=== PATIENT | female | born 1955 | race Caucasian/White ===

== ENCOUNTER 2023-07-14 04:35 | Day surgery (SDC) | payer OTHER ==
[2023-07-12 14:50] VITALS: BMI 29.5
[2023-07-14 08:16] VITALS: TEMP 98.6
[2023-07-14] MEDS ORDERED: LIDOCAINE HCL 2% JELLY 10 ML CARTRIDGE TP ONE (08:45)
[2023-07-14 10:07] VITALS: RESP 17
[2023-07-14 10:09] VITALS: BP 117/65; PULSE 66
== END 2023-07-14 09:45 | disposition home or self-care (01) ==
LOC: JASU-ENDO 04:35
PROVIDERS: ATTEND Internal Medicine Gastroenterology
PROC: 06LY8CC Occlusion of Hemorrhoidal Plexus with Extraluminal Device, Via Natural or Artificial Opening Endoscopic (ICD-10-PCS; principal; 2023-07-14 08:30)
DX: K64.3 Fourth degree hemorrhoids (principal)

== ENCOUNTER 2023-07-15 19:02 | Observation (INO) | payer OTHER ==
[2023-07-15 20:04] VITALS: BMI 29.8
[2023-07-15 20:46] LABS: BASO % 0.5 % (0-2.0); EOS % 1.1 % (0-4.5); HEMATOCRIT 38.1 % (32.4-45.2); HEMOGLOBIN 12.4 GM/dL (10.7-15.3); LYMPH % 26.8 % (8-40); MCH 25.5 pg (25.7-33.7); MCHC 32.5 g/dl (32.0-36.0); MEAN CELL VOLUME 78.3 fl (80-96); MEAN PLT VOLUME 8.9 fl (7.5-11.1); MONO % 6.5 % (3.8-10.2); NEUT % 65.1 % (42.8-82.8); PLATELET COUNT 279 10^3/uL (134-434); RBC 4.86 M/mm3 (3.60-5.2); RDW 14.8 % (11.6-15.6)
[2023-07-15 20:52] LABS: CHLORIDE 104 mmol/L (98-107); SODIUM 133 mmol/L (136-145)
[2023-07-15 20:54] LABS: ALBUMIN 3.7 g/dl (3.4-5.0); CALCIUM 9.2 mg/dL (8.5-10.1); CO2 25 mmol/L (21-32); LIPASE 73 U/L (73-393); MAGNESIUM 2.3 mg/dL (1.8-2.4)
[2023-07-15 20:55] LABS: GLUCOSE,RANDOM 106 mg/dL (74-106)
[2023-07-15 20:57] LABS: CREATININE 0.7 mg/dL (0.55-1.3); PHOSPHOROUS 3.5 mg/dL (2.5-4.9); SGOT/AST 56 U/L (15-37); SGPT/ALT 39 U/L (13-61)
[2023-07-15 20:59] LABS: BILIRUBIN,TOTAL 0.2 mg/dL (0.2-1); TOT PROT 7.8 g/dl (6.4-8.2)
[2023-07-15 21:00] LABS: ALK PHOS 95 U/L (45-117)
[2023-07-15 21:23] LABS: ANION GAP 5 mmol/L (4-13); POTASSIUM 8.3 mmol/L (3.5-5.1)
[2023-07-15] MEDS ORDERED: SODIUM CHLORIDE 0.9% 500 ML INFUS.BAG IV ONE ×2 (21:28→21:30)
[2023-07-15] MEDS ORDERED: ASPIRIN 81 MG CHEWABLE TABLETS PO ONE (21:39)
[2023-07-15 21:42] LABS: INR 1.25 (0.83-1.09); PROTHROMBIN TIME (PATIENT) 14.5 SEC (9.7-13.0)
[2023-07-15] MEDS ORDERED: ASPIRIN 81 MG CHEWABLE TABLETS ONE (21:43)
[2023-07-15 22:51] LABS: CREATININE 0.7 mg/dL (0.55-1.3)
[2023-07-16] MEDS ORDERED: levETIRAcetam 500 MG/5 ML INJECTION VIAL IVPB ONE (03:11)
[2023-07-16] MEDS: ASPIRIN 81 MG CHEWABLE TABLETS PO SCH ×2 (08:03→11:12)
[2023-07-16] MEDS: CHLORTHALIDONE 25 MG TABLET PO SCH ×2 (08:03→11:12)
[2023-07-16] MEDS: amLODIPine BESYLATE 10 MG TABLET (FP) PO SCH ×2 (08:04→11:12)
[2023-07-16] MEDS: LISINOPRIL 10 MG TABLET PO SCH ×2 (08:04→11:12)
[2023-07-16 08:05] VITALS: RESP 18
[2023-07-16 08:45] LABS: BASO % 0.5 % (0-2.0); EOS % 0.9 % (0-4.5); HEMATOCRIT 37.4 % (32.4-45.2); HEMOGLOBIN 12.1 GM/dL (10.7-15.3); LYMPH % 33.6 % (8-40); MCH 25.6 pg (25.7-33.7); MCHC 32.4 g/dl (32.0-36.0); MEAN PLT VOLUME 8.4 fl (7.5-11.1); MONO % 8.4 % (3.8-10.2); NEUT % 56.6 % (42.8-82.8); PLATELET COUNT 246 10^3/uL (134-434); RBC 4.73 M/mm3 (3.60-5.2); RDW 14.6 % (11.6-15.6); WHITE BLOOD COUNT 6.6 K/mm3 (4.0-10.0)
[2023-07-16 09:06] LABS: POTASSIUM 4.6 mmol/L (3.5-5.1)
[2023-07-16 09:07] LABS: CALCIUM 9.6 mg/dL (8.5-10.1)
[2023-07-16 09:08] LABS: BLOOD UREA NITROGEN 12.6 mg/dL (7-18)
[2023-07-16 09:11] LABS: CREATININE 0.7 mg/dL (0.55-1.3)
[2023-07-16 11:33] LABS: N-TERMINAL BNP 200.2 pg/ml (5-125)
[2023-07-16 12:23] VITALS: BP 117/70; PULSE 54; TEMP 98
[2023-07-16] MEDS ORDERED: ATORVASTATIN CA 40 MG TABLET (FP) PO SCH (22:00)
== END 2023-07-16 12:24 | disposition home or self-care (01) ==
LOC: JER 19:02 → JERBED 22:23
PROVIDERS: ADMIT Family Medicine; ATTEND Family Medicine
PROC: 3E0337Z Introduction of Electrolytic and Water Balance Substance into Peripheral Vein, Percutaneous Approach (ICD-10-PCS; principal; 2023-07-15)
DX: R00.2 Palpitations (principal); R94.5 Abnormal results of liver function studies; R79.89 Other specified abnormal findings of blood chemistry; E78.1 Pure hyperglyceridemia; I10 Essential (primary) hypertension; E04.1 Nontoxic single thyroid nodule; L98.9 Disorder of the skin and subcutaneous tissue, unspecified; R10.9 Unspecified abdominal pain; E66.9 Obesity, unspecified
CPT/HCPCS: 0241U-QW; 36415; 71045-TC-FY; 71275-TC; 74177-TC; 80048; 80053; 80061; 83690; 83735; 83880; 84100; 84439; 84443; 84484; 85025; 85610; 85730; 93005; 93010; 96360; 99285-25; G0378; Q9967

== ENCOUNTER 2023-07-21 18:59 | Observation (INO) | payer OTHER ==
[2023-07-21] MEDS ORDERED: ACETAMINOPHEN 1000 MG/100 ML BAG IVPB ONE (19:47)
[2023-07-21] MEDS ORDERED: MAG HYDROX/AL HYDROX/SIMETH 30 ML UNIT-DOSE CUP PO ONE (19:47)
[2023-07-21] MEDS ORDERED: FAMOTIDINE 20 MG/50 ML IVPB 20 MG/50 ML MG IVPB ONE ×2 (19:47→19:57)
[2023-07-21] MEDS ORDERED: MAG HYDROX/AL HYDROX/SIMETH 30 ML UNIT-DOSE CUP ONE (19:56)
[2023-07-21] MEDS ORDERED: ACETAMINOPHEN INJECTION 100 ML IVPB ONE (19:56)
[2023-07-21 20:22] LABS: BASO % 0.7 % (0-2.0); EOS % 1.2 % (0-4.5); HEMATOCRIT 38.6 % (32.4-45.2); HEMOGLOBIN 12.5 GM/dL (10.7-15.3); MCH 25.4 pg (25.7-33.7); MCHC 32.5 g/dl (32.0-36.0); MEAN PLT VOLUME 8.5 fl (7.5-11.1); MONO % 9.9 % (3.8-10.2); NEUT % 59.2 % (42.8-82.8); PLATELET COUNT 277 10^3/uL (134-434); RBC 4.95 M/mm3 (3.60-5.2); RDW 14.2 % (11.6-15.6); WHITE BLOOD COUNT 7.3 K/mm3 (4.0-10.0)
[2023-07-21 20:29] LABS: INR 1.26 (0.83-1.09); PROTHROMBIN TIME (PATIENT) 14.6 SEC (9.7-13.0)
[2023-07-21 20:31] LABS: ACTIVATED PTT 35.9 SECONDS (25.2-36.5)
[2023-07-21 20:47] LABS: CHLORIDE 93 mmol/L (98-107)
[2023-07-21 20:49] LABS: ALBUMIN 3.7 g/dl (3.4-5.0); CALCIUM 9.2 mg/dL (8.5-10.1); CO2 24 mmol/L (21-32); GLUCOSE,RANDOM 94 mg/dL (74-106)
[2023-07-21 20:52] LABS: CREATININE 0.8 mg/dL (0.55-1.3); SGOT/AST 97 U/L (15-37)
[2023-07-21 20:54] LABS: BILIRUBIN,TOTAL 0.5 mg/dL (0.2-1); TOT PROT 8.5 g/dl (6.4-8.2)
[2023-07-21 20:55] LABS: ALK PHOS 108 U/L (45-117)
[2023-07-21 21:14] LABS: ANION GAP 1 mmol/L (4-13); POTASSIUM > 10.0 mmol/L (3.5-5.1); SGPT/ALT 48 U/L (13-61); SODIUM 119 mmol/L (136-145)
[2023-07-21 22:33] LABS: POTASSIUM 4.4 mmol/L (3.5-5.1)
[2023-07-21 22:36] LABS: BLOOD UREA NITROGEN 11.2 mg/dL (7-18); CALCIUM 9.6 mg/dL (8.5-10.1)
[2023-07-21 22:40] LABS: CREATININE 0.7 mg/dL (0.55-1.3)
[2023-07-21] MEDS ORDERED: SODIUM CHLORIDE 500 ML IV STA (22:45)
[2023-07-21] MEDS ORDERED: ASPIRIN 81 MG CHEWABLE TABLETS PO ONE (22:59)
[2023-07-21] MEDS ORDERED: ASPIRIN 81 MG CHEWABLE TABLETS ONE (23:02)
[2023-07-22] MEDS: ACETAMINOPHEN 325 MG TABLET (FP) PO PRN (03:36)
[2023-07-22 04:16] LABS: EPI CELLS 1 /uL (0-25.1); HYALINE CASTS 0 /uL (0-3.1); PH,URINE 7.5 (5.0-8.0); URINE APPEARANCE CLEAR; URINE BACTERIA 1 /uL (0-1359); URINE BILIRUBIN NEGATIVE (NEGATIVE); URINE COLOR YELLOW; URINE GLUCOSE (UA) NEGATIVE (NEGATIVE); URINE KETONE NEGATIVE (NEGATIVE); URINE LEUK ESTERASE NEGATIVE (NEGATIVE); URINE NITRITE NEGATIVE (NEGATIVE); URINE PROTEIN NEGATIVE (NEGATIVE); URINE RBC 65 /uL (0-23.9); URINE UROBILINOGEN 0.2 mg/dL (0.2-1.0); URINE WBC 1 /uL (0-25.8)
[2023-07-22 08:08] LABS: BASO % 0.6 % (0-2.0); EOS % 1.1 % (0-4.5); HEMATOCRIT 36.7 % (32.4-45.2); LYMPH % 32.9 % (8-40); MCH 25.3 pg (25.7-33.7); MCHC 32.7 g/dl (32.0-36.0); MEAN CELL VOLUME 77.4 fl (80-96); MEAN PLT VOLUME 8.3 fl (7.5-11.1); NEUT % 55.4 % (42.8-82.8); PLATELET COUNT 260 10^3/uL (134-434); RBC 4.74 M/mm3 (3.60-5.2); RDW 14.1 % (11.6-15.6)
[2023-07-22 08:36] LABS: POTASSIUM 4.3 mmol/L (3.5-5.1)
[2023-07-22 08:42] LABS: CALCIUM 9.2 mg/dL (8.5-10.1)
[2023-07-22 08:43] LABS: BLOOD UREA NITROGEN 9.5 mg/dL (7-18)
[2023-07-22 08:45] LABS: CREATININE 0.7 mg/dL (0.55-1.3)
[2023-07-22] MEDS ORDERED: POLYETHYLENE GLYCOL (HEALTHYLAX) 3350 17 GM PACKET ONE (09:03)
[2023-07-22] MEDS ORDERED: ASPIRIN 81 MG CHEWABLE TABLETS ONE (09:03)
[2023-07-22] MEDS ORDERED: LISINOPRIL 10 MG TABLET ONE (09:03)
[2023-07-22] MEDS ORDERED: amLODIPine BESYLATE 10 MG TABLET (FP) ONE (09:03)
[2023-07-22] MEDS: ASPIRIN 81 MG CHEWABLE TABLETS PO SCH (09:51)
[2023-07-22] MEDS: LISINOPRIL 10 MG TABLET PO SCH (09:51)
[2023-07-22] MEDS: amLODIPine BESYLATE 10 MG TABLET (FP) PO SCH (09:51)
[2023-07-22] MEDS ORDERED: POLYETHYLENE GLYCOL (HEALTHYLAX) 3350 17 GM PACKET PO SCH (10:00)
[2023-07-22] MEDS ORDERED: LIDOCAINE HCL 2% JELLY (30 ML/TUBE) TP PRN (11:07)
[2023-07-22] MEDS ORDERED: LIDOCAINE HCL 2% JELLY (5 ML/TUBE) TP PRN (11:10)
[2023-07-22] MEDS: SODIUM CHLORIDE 1,000 ML IV SCH (17:19)
[2023-07-22] MEDS: POLYETHYLENE GLYCOL (HEALTHYLAX) 3350 17 GM PACKET PO SCH (21:41)
[2023-07-22] MEDS: ATORVASTATIN CA 40 MG TABLET (FP) PO SCH (21:41)
[2023-07-23] MEDS: ACETAMINOPHEN 325 MG TABLET (FP) PO PRN (05:26)
[2023-07-23] MEDS: SODIUM CHLORIDE 1,000 ML IV SCH (05:27)
[2023-07-23 07:45] LABS: CHOLESTEROL 182 mg/dL (50-200)
[2023-07-23 07:46] LABS: LDL CHOLESTEROL (ONLY SJRH) 126 mg/dL (5-100)
[2023-07-23 07:48] LABS: HDL CHOLESTEROL 40 mg/dL (40-60)
[2023-07-23 07:50] LABS: ALBUMIN 3.4 g/dl (3.4-5.0)
[2023-07-23 07:53] LABS: CALCIUM 9.1 mg/dL (8.5-10.1)
[2023-07-23 07:54] LABS: BLOOD UREA NITROGEN 8.9 mg/dL (7-18)
[2023-07-23 07:55] LABS: CREATININE 0.7 mg/dL (0.55-1.3)
[2023-07-23 07:57] LABS: BILIRUBIN,TOTAL 0.4 mg/dL (0.2-1); TOT PROT 6.7 g/dl (6.4-8.2)
[2023-07-23] MEDS: ASPIRIN 81 MG CHEWABLE TABLETS PO SCH (10:20)
[2023-07-23] MEDS: POLYETHYLENE GLYCOL (HEALTHYLAX) 3350 17 GM PACKET PO SCH ×2 (10:20→22:16)
[2023-07-23] MEDS: LISINOPRIL 10 MG TABLET PO SCH (10:20)
[2023-07-23] MEDS: amLODIPine BESYLATE 10 MG TABLET (FP) PO SCH (10:20)
[2023-07-23] MEDS: ATORVASTATIN CA 40 MG TABLET (FP) PO SCH (22:16)
[2023-07-23 23:59] VITALS: BMI 30.2
[2023-07-24] MEDS: ACETAMINOPHEN 325 MG TABLET (FP) PO PRN (02:05)
[2023-07-24 07:22] LABS: POTASSIUM 4.1 mmol/L (3.5-5.1)
[2023-07-24 07:27] LABS: ALBUMIN 3.3 g/dl (3.4-5.0); CALCIUM 9.4 mg/dL (8.5-10.1)
[2023-07-24 07:31] LABS: CREATININE 0.7 mg/dL (0.55-1.3)
[2023-07-24 07:32] LABS: TOT PROT 6.5 g/dl (6.4-8.2)
[2023-07-24 07:38] LABS: BILIRUBIN,TOTAL 0.5 mg/dL (0.2-1)
[2023-07-24] MEDS: SODIUM CHLORIDE 1,000 ML IV SCH ×2 (07:40→15:59)
[2023-07-24 08:56] VITALS: RESP 18
[2023-07-24] MEDS: ASPIRIN 81 MG CHEWABLE TABLETS PO SCH (09:08)
[2023-07-24] MEDS: LISINOPRIL 10 MG TABLET PO SCH (09:08)
[2023-07-24] MEDS: amLODIPine BESYLATE 10 MG TABLET (FP) PO SCH (09:08)
[2023-07-24] MEDS: POLYETHYLENE GLYCOL (HEALTHYLAX) 3350 17 GM PACKET PO SCH (09:08)
[2023-07-24 18:11] VITALS: BP 104/50; PULSE 67; TEMP 98.2
== END 2023-07-24 20:35 | disposition home or self-care (01) ==
LOC: JER 18:59 → JERBED 22:59 → J4W 07-22 12:58
PROVIDERS: ADMIT Internal Medicine; ATTEND Family Medicine
PROC: 3E033NZ Introduction of Analgesics, Hypnotics, Sedatives into Peripheral Vein, Percutaneous Approach (ICD-10-PCS; principal; 2023-07-21)
PROC: 3E0337Z Introduction of Electrolytic and Water Balance Substance into Peripheral Vein, Percutaneous Approach (ICD-10-PCS; 2023-07-21)
DX: E87.1 Hypo-osmolality and hyponatremia (principal); R00.2 Palpitations; I10 Essential (primary) hypertension; R10.10 Upper abdominal pain, unspecified; R79.89 Other specified abnormal findings of blood chemistry
CPT/HCPCS: 36415; 74176-TC; 80048; 80053; 80061; 81003; 82272; 82550; 83036; 84484; 85025; 85610; 85730; 87086; 93005; 93010; 96361; 96365; 96375; 99285-25; G0378

== ENCOUNTER 2024-05-18 19:04 | Observation (INO) | payer OTHER ==
[2024-05-18] MEDS: ACETAMINOPHEN 500 MG TABLET (FP) PO ONE (21:00)
[2024-05-18] MEDS ORDERED: ACETAMINOPHEN 325 MG TABLET (FP) ONE (21:17)
[2024-05-18 22:28] LABS: BASO % 0.6 % (0-2.0); EOS % 0.7 % (0-4.5); HEMATOCRIT 37.8 % (32.4-45.2); HEMOGLOBIN 12.3 GM/dL (10.7-15.3); MCH 25.5 pg (25.7-33.7); MCHC 32.6 g/dl (32.0-36.0); MEAN CELL VOLUME 78.2 fl (80-96); MEAN PLT VOLUME 8.2 fl (7.5-11.1); MONO % 7.6 % (3.8-10.2); NEUT % 67.1 % (42.8-82.8); PLATELET COUNT 245 10^3/uL (134-434); RBC 4.84 M/mm3 (3.60-5.2); RDW 14.4 % (11.6-15.6); WHITE BLOOD COUNT 6.1 K/mm3 (4.0-10.0)
[2024-05-18 22:35] LABS: INR 1.19 (0.83-1.09); PROTHROMBIN TIME (PATIENT) 13.4 SEC (9.7-13.0)
[2024-05-18 22:38] LABS: ACTIVATED PTT 37.8 SECONDS (25.2-36.5)
[2024-05-18 23:12] LABS: CALCIUM 9.8 mg/dL (8.5-10.1)
[2024-05-18 23:13] LABS: ALBUMIN 3.8 g/dl (3.4-5.0); BLOOD UREA NITROGEN 10.8 mg/dL (7-18); MAGNESIUM 1.9 mg/dL (1.8-2.4)
[2024-05-18 23:16] LABS: CREATININE 0.6 mg/dL (0.55-1.3)
[2024-05-18 23:18] LABS: BILIRUBIN,TOTAL 0.2 mg/dL (0.2-1); TOT PROT 7.2 g/dl (6.4-8.2)
[2024-05-19] MEDS ORDERED: METOCLOPRAMIDE HCL INJECTION 10 MG/2 ML VIAL ONE (00:35)
[2024-05-19] MEDS: METOCLOPRAMIDE HCL INJECTION 10 MG/2 ML VIAL IVPB ONE (00:45)
[2024-05-19 00:48] LABS: EPI CELLS 2 /uL (0-25.1); HYALINE CASTS 0 /uL (0-3.1); PH,URINE 6.5 (5.0-8.0); URINE APPEARANCE CLEAR; URINE BACTERIA 4 /uL (0-1359); URINE BILIRUBIN NEGATIVE (NEGATIVE); URINE COLOR YELLOW; URINE GLUCOSE (UA) NEGATIVE (NEGATIVE); URINE KETONE NEGATIVE (NEGATIVE); URINE LEUK ESTERASE TRACE (NEGATIVE); URINE NITRITE NEGATIVE (NEGATIVE); URINE PROTEIN NEGATIVE (NEGATIVE); URINE RBC 275 /uL (0-23.9); URINE UROBILINOGEN 0.2 mg/dL (0.2-1.0); URINE WBC 17 /uL (0-25.8)
[2024-05-19] MEDS: KETOROLAC TROMETHAMINE 15 MG/ML VIAL IVPUSH ONE (03:42)
[2024-05-19 08:35] LABS: PHOSPHOROUS 3.5 mg/dL (2.5-4.9)
[2024-05-19 08:41] LABS: N-TERMINAL BNP 83.3 pg/ml (5-125)
[2024-05-19] MEDS ORDERED: METOPROLOL TARTRATE 25 MG TABLET (FP) ONE (09:36)
[2024-05-19] MEDS ORDERED: LISINOPRIL 20 MG TABLET ONE (09:36)
[2024-05-19] MEDS ORDERED: ASPIRIN 81 MG CHEWABLE TABLETS ONE (09:37)
[2024-05-19] MEDS: LISINOPRIL 20 MG TABLET PO SCH (09:50)
[2024-05-19] MEDS: ASPIRIN 81 MG CHEWABLE TABLETS PO SCH (09:50)
[2024-05-19] MEDS: METOPROLOL TARTRATE 25 MG TABLET (FP) PO SCH (09:50)
[2024-05-19 16:36] VITALS: BMI 30.7
[2024-05-19 18:48] VITALS: RESP 18
[2024-05-19] MEDS: ATORVASTATIN CA 40 MG TABLET (FP) PO SCH (22:22)
[2024-05-20] MEDS: amLODIPine BESYLATE 10 MG TABLET (FP) PO SCH (10:17)
[2024-05-21 11:12] VITALS: BP 119/66; PULSE 64; TEMP 98.1
== END 2024-05-21 11:10 | disposition home or self-care (01) ==
LOC: JER 19:04 → JERBED 05-19 01:03 → J4W 05-19 16:11
PROVIDERS: ADMIT Internal Medicine; ATTEND Family Medicine
PROC: 3E0333Z Introduction of Anti-inflammatory into Peripheral Vein, Percutaneous Approach (ICD-10-PCS; principal; 2024-05-19)
PROC: 3E033GC Introduction of Other Therapeutic Substance into Peripheral Vein, Percutaneous Approach (ICD-10-PCS; 2024-05-19)
DX: R51.9 Headache, unspecified (principal); I10 Essential (primary) hypertension; R79.89 Other specified abnormal findings of blood chemistry; E78.1 Pure hyperglyceridemia; E04.1 Nontoxic single thyroid nodule; E66.9 Obesity, unspecified; R21 Rash and other nonspecific skin eruption; K21.9 Gastro-esophageal reflux disease without esophagitis; K59.00 Constipation, unspecified; R93.2 Abnormal findings on diagnostic imaging of liver and biliary tract
CPT/HCPCS: 0241U-QW; 36415; 70450-TC; 71045-TC-FY; 71275-TC; 80053; 81003; 83735; 83880; 84100; 84484; 85025; 85379; 85610; 85730; 86850; 86900; 86901; 87086; 93005; 93010; 96374; 96375; 99285-25; G0378; Q9967

== ENCOUNTER 2024-06-21 04:32 | Day surgery (SDC) | payer OTHER ==
[2024-06-19 14:37] VITALS: BMI 31.1
[2024-06-21 13:51] VITALS: RESP 18
[2024-06-21] MEDS: BUPIVACAINE HCL/PF 0.75% 10 ML VIAL NR ONE (14:53)
[2024-06-21] MEDS: LIDOCAINE HCL 1% PRESERVATIVE FREE - 30ML VIAL NR ONE (14:53)
[2024-06-21 16:15] VITALS: BP 133/73; PULSE 68; TEMP 97.7
== END 2024-06-21 15:30 | disposition home or self-care (01) ==
LOC: JASU-SURG 04:32
PROVIDERS: ATTEND Pain Medicine Pain Medicine
PROC: 3E0T33Z Introduction of Anti-inflammatory into Peripheral Nerves and Plexi, Percutaneous Approach (ICD-10-PCS; 2024-06-21)
PROC: 3E0T3BZ Introduction of Anesthetic Agent into Peripheral Nerves and Plexi, Percutaneous Approach (ICD-10-PCS; principal; 2024-06-21 15:00)
DX: M47.816 Spondylosis without myelopathy or radiculopathy, lumbar region (principal)
CPT/HCPCS: 76000-TC-FY

== ENCOUNTER 2024-08-03 15:47 | Emergency (ER) | payer OTHER ==
[2024-08-03 15:57] VITALS: BP 156/80; PULSE 76; RESP 18; TEMP 98.4; BMI 31.8
[2024-08-03] MEDS ORDERED: KETOROLAC TROMETHAMINE 30 MG/1 ML VIAL ONE (17:19)
[2024-08-03] MEDS ORDERED: LIDOCAINE 4% PATCH TP ONE (17:19)
[2024-08-03] MEDS: KETOROLAC TROMETHAMINE 30 MG/1 ML VIAL IM ONE (17:24)
[2024-08-03] MEDS: LIDOCAINE 4% PATCH TP ONE (17:24)
[2024-08-03] MEDS ORDERED: LIDOCAINE PATCH REMOVAL MC SCH (22:00)
== END 2024-08-03 18:42 | disposition home or self-care (01) ==
LOC: JER 15:47 → JERFT 15:47 → JER 18:42
PROC: 3E0133Z Introduction of Anti-inflammatory into Subcutaneous Tissue, Percutaneous Approach (ICD-10-PCS; principal; 2024-08-03)
DX: M79.652 Pain in left thigh (principal); R20.0 Anesthesia of skin; M54.10 Radiculopathy, site unspecified
CPT/HCPCS: 96372; 99284-25